=== PATIENT | female | born 1995 | race Caucasian/White ===

== ENCOUNTER 2019-04-28 14:29 | Emergency (ER) | payer MEDICAID ==
[~2019-04-28] VITALS: Ht 157.5 cm; Wt 71.2 kg
--- OUTSIDE RECORDS SUMMARY | 2019-04-28 14:32 | XMS ---
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 Jac has no Care Guidelines for this patient. Gregg VISIT COUNT (12 MO.) [address] TOTAL 4 NOTE: Visits indicate total known visits. ED/C VISIT TRACKING (12 MO.) [facility] COMPLAINT: - ABD PAIN 04/14/2019 19:26 [facility] [place] TYPE: Emergency COMPLAINT: - HEAVY VAGINAL BLEEDING DIAGNOSES: - Less than 8 weeks gestation of - Hemorrhage in early , unspecified 03/04/2019 17:18 [facility] [place] TYPE: Emergency COMPLAINT: - L ROTATOR CUFF STRAIN DIAGNOSES: - Unspecified fall, initial encounter - Strain of muscle(s) and tendon(s) of the rotator cuff of left shoulder, initial encounter 06/26/2018 15:40 [facility] [place] TYPE: Emergency COMPLAINT: - L GREAT TOENAIL AVULSION DIAGNOSES: - Unspecified injury of left foot, initial encounter - Unspecified injury of left foot, initial encounter - Striking against other stationary object, initial encounter - Striking against other stationary object, initial encounter INPATIENT VISIT TRACKING ( MO.) No inpatient visits to display in this time frame [email or web address]
[2019-04-28] MEDS ORDERED: NORCO 5-325 TA1 EACH PO (17:40)
[2019-04-28] MEDS ORDERED: ONDANSETRON ODT8 MG PO (17:40)
== END 2019-04-28 18:06 | disposition home or self-care (01) ==
LOC: ED 14:29
DX: O03.9 Complete or unspecified spontaneous abortion without complication (principal)
CPT/HCPCS: 76801; 76817; 80053; 81001; 84702; 85025; 86900; 86901; 96361; 96374; 99284-25; J2405; J7030

== ENCOUNTER 2024-09-28 20:57 | Emergency (ER) | payer OTHER ==
[~2024-09-28] VITALS: Ht 157.5 cm; Wt 78.5 kg
[~2024-09-28 20:57] MED LIST: NORCO 5-325 TA1 EACH PO; ONDANSETRON ODT8 MG PO
[2024-09-28 21:35] LABS: BASOPHILS 0.7 % (0-2); EOSINOPHILS 1.4 % (0-6); HEMATOCRIT 46.1 % (35.0-50.0); LYMPHOCYTES 31.1 % (24-44); MCH 29.9 (27-36); MCHC 34.7 g/dl (30-36); MCV 86.3 fl (81-99); MONOCYTES 6.2 % (0-12); NEUTROPHILS 60.6 % (39-80); PLATELET COUNT 181 K/uL (140-440); RBC 5.34 M/ul (4.3-5.7); RDW 12.9 (10.5-15.0)
[2024-09-28 21:39] LABS: BILIRUBIN, URINE NEGATIVE (negative); BLOOD/HGB, URINE LARGE (Negative); KETONE, URINE NEGATIVE (Negative); LEUK ESTERASE, URINE TRACE (negative); NITRITE, URINE NEGATIVE (negative); PH, URINE 5.5 (5-7)
[2024-09-28 21:47] LABS: BACTERIA, URINE 1+ /hpf (negative); CASTS, URINE NONE SEEN \\lpf; COLLECTION TYPE, URINE CLEAN CATCH; CRYSTALS, URINE NONE SEEN (0-1+); EPITHELIAL CELLS, URINE SQUAMOUS 2+ /lpf (0-1+); REFLEX CULTURE, URINE No (No)
[2024-09-28 21:55] LABS: ALBUMIN 4.1 g/dL (3.4-5.0); ALBUMIN/GLOBULIN RATIO 1.21 (1.1-2.4); ANION GAP 13.7 (7-21); BILIRUBIN, TOTAL 0.3 ng/dL (0.2-1.0); BUN/CREATININE RATIO 28.57 (6.0-28.6); CALCIUM 9.6 mg/dL (8.5-10.1); CREATININE, SERUM 0.56 mg/dL (0.55-1.02); POTASSIUM 3.7 mmol/L (3.5-5.1); PROTEIN, TOTAL 7.5 g/dL (6.4-8.2)
[2024-09-29 00:14] LABS: ABO O; RH POSITIVE
[2024-09-29 00:27] VITALS: BP 109/74
== END 2024-09-29 00:27 | disposition home or self-care (01) ==
LOC: ED 20:57
PROVIDERS: Family Medicine
DX: O03.4 Incomplete spontaneous abortion without complication (principal)
CPT/HCPCS: 36415; 76801; 76817; 80053; 81001; 84702; 85025; 86900; 86901; 99284-25